=== PATIENT | male | born 1980 | race Caucasian/White ===

== ENCOUNTER 2022-05-01 15:33 | Emergency (ER) | payer OTHER | END 2022-05-01 17:30 | disposition home or self-care (01) | LOC: LB.ED 15:33 | DX: S63.501A Unspecified sprain of right wrist, initial encounter (principal); Z79.899 Other long term (current) drug therapy; W29.4XXA Contact with nail gun, initial encounter | CPT/HCPCS: 73110-RT; 99283 ==

== ENCOUNTER 2024-01-22 18:31 | Emergency (ER) | payer MEDICAID, OTHER ==
[2024-01-22] MEDS: Ondansetron 4 MG/2 ML SDV IVPUSH ONE (18:33)
[2024-01-22] MEDS: Sodium Chloride 0.9% 1,000 ML IV ONE (18:42)
[2024-01-22] MEDS: HYDROmorphone 2 MG/ML Syringe IVPUSH ONE ×2 (18:43→18:58)
[2024-01-22] MEDS ORDERED: Naloxone 2 MG/2 ML Syringe IVPUSH PRN ×2 (18:45→18:59)
[2024-01-22] MEDS: Pantoprazole 40 MG Vial IVPUSH ONE (18:45)
[2024-01-22 19:05] LABS: BASOPHILS ABSOLUTE AUTO 0.01 K/uL (0.02-0.10); BASOPHILS PERCENT AUTO 0.1 % (0.0-0.5); EOSINOPHILS ABSOLUTE AUTO 0.02 K/uL (0.04-0.40); EOSINOPHILS PERCENT AUTO 0.1 % (1.0-5.0); HEMATOCRIT 48.8 % (40.0-54.0); HEMOGLOBIN 17.5 g/dL (13.0-18.0); LYMPHOCYTES ABSOLUTE AUTO 2.67 K/uL (1.50-4.00); LYMPHOCYTES PERCENT AUTO 18.1 % (20.0-40.0); MEAN CORPUSCULAR HEMOGLOBIN 30.1 pg (27.0-32.0); MEAN CORPUSCULAR HGB CONC 35.9 g/dL (31.0-35.0); MEAN CORPUSCULAR VOLUME 84 fL (76-96); MEAN PLATELET VOLUME 9.8 fL (6.0-10.0); MONOCYTES ABSOLUTE AUTO 0.98 K/uL (0.20-0.80); MONOCYTES PERCENT AUTO 6.6 % (3.0-10.0); NEUTROPHILS ABSOLUTE AUTO 11.08 K/uL (2.00-7.50); NEUTROPHILS PERCENT AUTO 75.1 % (45.0-70.0); PLATELET COUNT,PLT 237 K/uL (150-400); RED BLOOD CELL COUNT 5.81 M/uL (4.50-6.50); RED CELL DISTRIBUTION WIDTH 13.4 % (11.0-16.0); WHITE BLOOD CELL COUNT,WBC 14.8 K/uL (4.0-11.0)
[2024-01-22 19:14] LABS: A/G RATIO 1.6 (0.8-2.0); ANION GAP 22.4 mmol/L (5.0-15.0); BILIRUBIN TOTAL 1.1 mg/dL (0.0-1.0); CALCIUM 10.2 mg/dL (8.5-10.1); CARBON DIOXIDE,CO2 20.8 mmol/L (21.0-32.0); CREATININE 1.15 mg/dL (0.70-1.30); EST CRCL DRUG DOSING (CG) 84.53 mL/min; POTASSIUM,K 4.2 mmol/L (3.5-5.1); PROTEIN TOTAL,TP 8.2 g/dL (6.4-8.2)
[2024-01-22] MEDS: LORazepam 2 MG/ML SDV IVPUSH ONE (19:14)
[2024-01-22] MEDS: GI Cocktail Oral Solution 30 ML PO ONE ×2 (19:19→20:02)
[2024-01-22] MEDS: LORazepam 2 MG/ML SDV ONE (19:27)
[2024-01-22] MEDS ORDERED: Aluminum Hydroxide/Magnesium Hydroxide/Simethicone Susp 30 ML Cup ONE (21:00)
[2024-01-22] MEDS ORDERED: Lidocaine 2% Viscous Solution 15 ML UD ONE (21:00)
[2024-01-22 21:11] VITALS: BP 112/72; PULSE 76
== END 2024-01-22 21:16 | disposition home or self-care (01) ==
LOC: LB.ED 18:31
DX: K29.21 Alcoholic gastritis with bleeding (principal)
CPT/HCPCS: 36415; 71250; 74176; 80053; 83690; 85025; 96361; 96374; 96375; 99284; A9270; J1170; J2060; J2405; J2470; J7030

== ENCOUNTER 2024-02-03 15:55 | Emergency (ER) | payer MEDICAID ==
[2024-02-03] MEDS ORDERED: Acetaminophen/HYDROcodone 325-5 MG Tab ONE (17:15)
== END 2024-02-03 17:22 | disposition home or self-care (01) ==
LOC: LB.ED 15:55
DX: S83.91XA Sprain of unspecified site of right knee, initial encounter (principal); F17.210 Nicotine dependence, cigarettes, uncomplicated; X50.1XXA Overexertion from prolonged static or awkward postures, initial encounter
CPT/HCPCS: 73562; 99283; A9270